=== PATIENT | female | born 1980 | race Caucasian/White ===

== ENCOUNTER → 2018-02-24 08:13 | Outpatient (CLI) | payer BC, SELFPAY ==
--- NOTE | 2018-02-24 08:19 | US_ITS ---
US gallbladder COMPARISON: None HISTORY: Generalized abdominal pain with some bloating and nausea Sagittal, transverse and decubitus imaging of the gallbladder was performed. GALLBLADDER - No stones are evident and there is no biliary sludge. Common duct is normal in diameter. The gallbladder wall is normal thickness. Liver: Unremarkable Pancreas: Normal size with normal echogenicity Right kidney: Unremarkable appearing. No hydronephrosis. Right kidney measures 12.1 x 4.4 x 5.0 cm IMPRESSION: Negative gallbladder ultrasound. No stones evident. Liver pancreas and right kidney all appear grossly normal.
== END ==
PROVIDERS: PCP Internal Medicine; Visit Provider Internal Medicine
DX: R14.0 Abdominal distension (gaseous) (principal); R10.9 Unspecified abdominal pain; R11.0 Nausea
CPT/HCPCS: 76705

== ENCOUNTER → 2018-08-22 09:22 | Outpatient (POV) | payer BC, SELFPAY | PROVIDERS: Visit Provider Dermatology | DX: Z00.00 Encounter for general adult medical examination without abnormal findings (principal) ==

== ENCOUNTER → 2018-10-24 13:14 | Outpatient (CLI) | payer BC, SELFPAY ==
[2018-10-24 13:49] LABS: Basophils # 0.1 K/mm3 (0-0.2); Basophils % 1.2 % (0.1-2.0); Eosinophils # 0.1 K/mm3 (0.0-0.4); Eosinophils % 1.1 % (0.1-12.0); Hematocrit 41.2 % (37.0-47.0); Hemoglobin 13.7 g/dL (12.2-16.2); Lymphocytes % 38.7 % (10-50); Mean Corpuscular HGB Conc 33.2 g/dL (31.8-35.4); Mean Corpuscular Hemoglobin 30.5 pg (27.0-31.2); Mean Corpuscular Volume 91.8 fl (81-99); Mean Platelet Volume 8.1 fl (7.4-10.4); Monocytes # 0.2 K/mm3 (0.1-1.0); Monocytes % 4.6 % (1.7-9.3); Neutrophils # 2.8 K/mm3 (1.8-7.8); Neutrophils % 54.5 % (37.0-80.0); Platelet Count 240 K/mm3 (142-424); Red Blood Count 4.49 M/mm3 (4.20-5.40); Red Cell Distribution Width 12.2 % (11.5-17.5); White Blood Count 5.2 K/mm3 (4.8-10.8)
[2018-10-24 20:05] LABS: Free T4 (Free Thyroxine) 0.97 ng/dl (0.76-1.46)
[2018-10-24 20:13] LABS: Alanine Aminotransferase 19 U/L (12-78); Albumin Level 4.6 gm/dL (3.4-5.0); Albumin/Globulin Ratio 1.5 (1.1-1.8); Alkaline Phosphatase 59 U/L (46-116); Anion Gap 10.9 mEq/L (5-15); Aspartate Amino Transferase 10 U/L (15-37); Bilirubin,Total 0.7 mg/dL (0.2-1.0); Blood Urea Nitrogen 8 mg/dL (7-18); Calcium 9.6 mg/dL (8.5-10.1); Carbon Dioxide 30 mmol/L (21.0-32.0); Chloride 103 mmol/L (98-107); Chol/HDL Ratio 2.8 (1-3.5); Cholesterol 214 mg/dL (140-200); Creatinine,Serum 0.73 mg/dL (0.55-1.02); Estimated Glomerular Filt Rate 88 ml/min (>60); GFR (African American) 107 ML/MIN (>60); Glucose 84 mg/dL (74-106); HDL Cholesterol 76 mg/dL (29-89); LDL Cholesterol 124 mg/dL (0-130); Potassium 3.9 mmoL/L (3.5-5.1); Sodium 140 mmol/L (136-145); Thyroid Stimulating Hormone 1.28 uIU/ml (0.358-3.740); Total Protein,Serum 7.6 gm/dL (6.4-8.2); Triglycerides 68 mg/dL (30-200); VLDL Cholesterol 14 mg/dL (0-40)
== END ==
PROVIDERS: Internal Medicine; Visit Provider Internal Medicine
DX: R53.83 Other fatigue (principal); Z00.00 Encounter for general adult medical examination without abnormal findings
CPT/HCPCS: 36415; 80053; 80061; 84439; 84443; 85025

== ENCOUNTER → 2018-12-13 12:51 | Outpatient (CLI) | payer BC, SELFPAY ==
--- NOTE | 2018-12-13 12:55 | MM_ITS ---
MM Dig mamm BI DX w/CAD, US breast RT complete, US breast LT complete INDICATION: Palpable area in the right breast upper outer aspect ORDERING PHYSICIAN: Madison Ballard MD PATIENT AGE: 38 years COMPARISON: 06/11/2014 TECHNIQUE: Standard images performed along with spot compression views of the palpable abnormality and bilateral breast ultrasound. The study is compared to an older exam of 06/11/2014 FINDINGS: There is very dense bilateral breast tissue with multiple bilateral varying sized benign-appearing nodules many of which are new when compared to the previous exam. No malignant appearing mass or malignant appearing microcalcification is evident. On the right, there is a benign-appearing nodular density which measures at least 2 x 2.5 cm in the region of the palpable abnormality. This was not present on previous exam however, there were multiple other small nodular densities present on that study. In addition, there are numerous other bilateral benign-appearing nodules along with benign-appearing calcifications of the breast. Right breast ultrasound: There is dense fibroglandular tissue with multiple right breast cysts. At 11:00 there is a 3.9 x 1.5 cm septated cyst corresponding to the palpable abnormality.. No malignant appearing masses are evident. Left breast ultrasound: Echodense fibroglandular tissue with multiple cysts. The largest cyst is at 2:00 measuring 2.4 x 1.3 cm with an internal septation. No suspicious nodules evident. Small nodes are present in the axilla. IMPRESSION: Multiple bilateral breast cysts. Palpable abnormality in the upper outer aspect of the right breast corresponds to a 3.9 x 1.5 cm septated cyst. No convincing evidence of malignancy. There is very dense fibroglandular tissue which decreases the sensitivity of mammography. Any suspicious palpable abnormality should be managed on a clinical basis. Fine-needle aspiration could be performed of the palpable nodule for patient comfort if clinically desired. Recommend 6 month mammographic and sonographic follow-up due to the multiple abnormalities and the complex cysts BI-RADS Category: 3 Probably Benign Finding Short Term Follow-up RECOMMENDED FOLLOW-UP: 6M - 6 MONTH FOLLOW-UP (A letter has been sent to the patient regarding results of the study.)
== END ==
PROVIDERS: PCP Internal Medicine; Visit Provider Obstetrics & Gynecology
DX: R92.2 Inconclusive mammogram (principal); N63.10 Unspecified lump in the right breast, unspecified quadrant
CPT/HCPCS: 76641; 77066

== ENCOUNTER → 2019-04-09 10:39 | Outpatient (CLI) | payer BC, SELFPAY ==
--- NOTE | 2019-04-09 10:43 | XR_ITS ---
XR ankle wt bearing LT min 3V Ordering Physician: Taylor Peralta DPM Patient Age: 39 years: Female HISTORY: ITS.REASON: Ankle Injury after stepping pain after stepping off stairs rolled ankle. Pain at arch of left foot into heel. TECHNIQUE: 3 views left ankle weightbearing pain COMPARISON : No previous relevant studies FINDINGS . The ankle is intact with no fracture evident. No separate soft tissue swelling overlying the lateral or medial malleolus. Ankle mortise intact. Mild sclerotic focus at medial dome of talus is most likely a bone island 7.5 mm plantar calcaneal spur.. No associated swelling or fracture or fragmentation hereRadiographically. Also note minimal 5 mm spur at the insertion of Achilles tendon IMPRESSION: . Left Ankle intact no acute fracture or findings. . Calcaneal spurring noted
== END ==
PROVIDERS: PCP Internal Medicine; Visit Provider Podiatrist
DX: S99.912A Unspecified injury of left ankle, initial encounter (principal)
CPT/HCPCS: 73610

== ENCOUNTER → 2019-05-28 16:29 | Outpatient (CLI) | payer BC, SELFPAY | PROVIDERS: PCP Internal Medicine; Visit Provider Internal Medicine Cardiovascular Disease | DX: G47.30 Sleep apnea, unspecified (principal); R06.83 Snoring; R40.0 Somnolence | CPT/HCPCS: G0399 ==

== ENCOUNTER → 2019-06-26 14:32 | Outpatient (CLI) | payer BC, SELFPAY ==
--- NOTE | 2019-06-26 14:32 | MM_ITS ---
PROCEDURE: MM DIG MAMM BI DX W/CAD CLINICAL INDICATION: 6 month follow up Follow-up bilateral nodules 6 COMPARISON: BREASTLT US breast LT complete from 12/13/2018 BREASTRT US breast RT complete from 12/13/2018 DXBI MM Dig mamm BI DX w/CAD from 12/13/2018 US BREAST RT COMPLETE from 06/26/2019 US BREAST LT COMPLETE from 06/26/2019 TECHNIQUE: Standard images performed along with spot compression views and bilateral breast ultrasound FINDINGS: There is very dense breast tissue bilaterally. This limits mammographic evaluation and could obscure underlying nodules. There are multiple bilateral benign-appearing nodular densities once again noted. Some of these are smaller and some of these are larger compared to the previous exam consistent with fluctuating cysts no malignant appearing mass or malignant-appearing microcalcification. There are bilateral benign-appearing calcifications. Right breast ultrasound: At 10 o'clock there is a 2 cm cyst. Adjacent to this cyst is a in slightly hypoechoic nodule at 7 mm not readily identified on the previous study and is may be related to an area of debris or hemorrhage within a cyst or a new solid nodule.. Previously there was a 4 by 2 cm cyst at 11 o'clock. This may be part of that cyst previously noted cyst. At 11 o'clock now there is a 2.3 x 1.2 cm cyst. Suggest 6 month follow-up ultrasound of the right breast to confirm stability of the news solid appearing nodule. Left breast ultrasound: A complicated 3 x 1 cm cyst is present in the 2 o'clock region of the left breast. This previously measured 2.4 x 1.3 cm. Complicated 1.8 cm cyst is present at 4 o'clock previously 1.2 cm. Near the nipple at 9 o'clock there is a 2.9 x 0.6 cm cyst. No suspicious nodules are evident. IMPRESSION: Overall there has been no significant change with probably benign findings. Would recommend a continued six-month follow-up to confirm 1 year stability in this patient with multiple breast nodules. Would also suggest continued ultrasound surveillance due to this increased density in the complicated cysts and the possible new solid nodule versus debris-filled cyst at 11 o'clock in the right breast. BI-RAD Category: 3 Probably Benign Finding Short Term Follow-up FOLLOW-UP: 6M 6Month Follow-up (A letter has been sent to the patient regarding results of the study.) Dictated by: Dereck Granados MD 07/02/2019 09:13 Electronically signed by Dereck Granados MD in [place] 07/02/2019 09:13
== END ==
PROVIDERS: PCP Internal Medicine; Visit Provider Obstetrics & Gynecology
DX: N60.01 Solitary cyst of right breast (principal); N60.02 Solitary cyst of left breast
CPT/HCPCS: 76641; 77066

== ENCOUNTER → 2020-01-17 15:21 | Outpatient (CLI) | payer OTHER, SELFPAY ==
[2020-01-17 15:36] LABS: Basophils % 0.6 % (0.1-2.0); Eosinophils # 0.1 K/mm3 (0.0-0.4); Hematocrit 39.4 % (37.0-47.0); Hemoglobin 12.5 g/dL (12.2-16.2); Lymphocytes # 2.3 K/mm3 (0.7-4.5); Lymphocytes % 34.4 % (10-50); Mean Corpuscular HGB Conc 31.8 g/dL (31.8-35.4); Mean Corpuscular Hemoglobin 30.1 pg (27.0-31.2); Mean Corpuscular Volume 94.4 fl (81-99); Mean Platelet Volume 8.6 fl (7.4-10.4); Monocytes # 0.3 K/mm3 (0.1-1.0); Monocytes % 4.9 % (1.7-9.3); Neutrophils # 3.8 K/mm3 (1.8-7.8); Neutrophils % 58.1 % (37.0-80.0); Platelet Count 226 K/mm3 (142-424); Red Blood Count 4.17 M/mm3 (4.20-5.40); Red Cell Distribution Width 12.5 % (11.5-17.5); White Blood Count 6.6 K/mm3 (4.8-10.8)
[2020-01-17 16:44] LABS: Chloride 104 mmol/L (98-107); Sodium 137 mmol/L (136-145)
[2020-01-17 16:45] LABS: Potassium 4.2 mmoL/L (3.5-5.1)
[2020-01-17 16:47] LABS: Alanine Aminotransferase 14 U/L (12-78); Albumin Level 4.6 g/dl (3.5-5.0); Albumin/Globulin Ratio 1.8 (1.1-1.8); Alkaline Phosphatase 43 U/L (38-126); Anion Gap 9.2 mEq/L (5-15); Aspartate Amino Transferase 20 U/L (14-36); Bilirubin,Total 0.4 mg/dl (0.2-1.3); Blood Urea Nitrogen 12 mg/dl (7-17); Calcium 9.8 mg/dl (8.4-10.2); Carbon Dioxide 28 mmol/L (22.0-30.0); Estimated Glomerular Filt Rate 92 ml/min (>60); GFR (African American) 112 ML/MIN (>60); Globulin 2.5 g/dL (1.3-3.2); Glucose 78 mg/dl (74-100); Total Protein,Serum 7.1 g/dl (6.3-8.2)
[2020-01-19 08:42] LABS: FSH 2.9 mIU/mL (.); LH 2.1 mIU/mL (.)
== END ==
PROVIDERS: Visit Provider Obstetrics & Gynecology
DX: N95.1 Menopausal and female climacteric states (principal); R09.89 Other specified symptoms and signs involving the circulatory and respiratory systems; F32.89 Other specified depressive episodes; R53.83 Other fatigue
CPT/HCPCS: 36415; 80053; 83001; 83002; 84443; 85025

== ENCOUNTER → 2020-01-22 14:24 | Outpatient (CLI) | payer OTHER, SELFPAY ==
--- NOTE | 2020-01-22 | US_ITS ---
PROCEDURE: MM DIG MAMM BI DX W/CAD Digital Breast Tomosynthesis Included CLINICAL INDICATION: abnormal mammogram Follow-up abnormal mammogram, bilateral breast nodules COMPARISON: DXBI MM Dig mamm BI DX w/CAD from 12/13/2018 MM DIG MAMM BI DX W/CAD from 06/26/2019 US BREAST RT COMPLETE from 06/26/2019 US BREAST LT COMPLETE from 06/26/2019 US BREAST RT COMPLETE from 01/22/2020 US BREAST LT COMPLETE from 01/22/2020 TECHNIQUE: Standard CC and MLO images and 3D Tomosynthesis was obtained. R2 CAD reviewed. FINDINGS: There is very dense fibroglandular tissue bilaterally which decreases sensitivity of mammography. There are multiple bilateral benign-appearing nodular lesions. No malignant appearing mass or malignant-appearing microcalcification is evident. The nodules are varying in size. The largest nodule on right measures approximately 2.8 cm previously measuring 2.2 cm. This represents a lobulated cyst by ultrasound. There are some scattered faint calcifications which do not appear significantly changed Right breast ultrasound: There are multiple right breast cysts simple and complicated. No suspicious solid lesions are evident. The largest cyst is in 10 o'clock at 2.5 x 2.6 cm. Previously there was a question of a solid component to a cyst at 10 o'clock which is not demonstrated on today's exam Left breast ultrasound: Multiple simple and complicated cyst. The largest is in the 2 o'clock region at 3.3 x 3 cm. No suspicious solid lesions are evident. IMPRESSION: Numerous bilateral breast cysts. No suspicious lesions apparent with no significant change BI-RAD Category: 2 Benign Finding(s) FOLLOW-UP: 1YR 1 Year Follow-up (A letter has been sent to the patient regarding results of the study.) Dictated by: Dereck Granados MD 01/25/2020 09:08 Electronically signed by Dereck Granados MD in [place] 01/25/2020 09:08
== END ==
PROVIDERS: PCP Internal Medicine; Visit Provider Obstetrics & Gynecology
DX: R92.8 Other abnormal and inconclusive findings on diagnostic imaging of breast (principal)
CPT/HCPCS: 76641; 77062; 77066; G0279

== ENCOUNTER → 2020-02-27 11:38 | Outpatient (CLI) | payer OTHER, SELFPAY ==
[2020-02-27 11:56] LABS: Basophils % 0.8 % (0.1-2.0); Eosinophils # 0.1 K/mm3 (0.0-0.4); Eosinophils % 1.9 % (0.1-12.0); Hematocrit 41.8 % (37.0-47.0); Hemoglobin 13.8 g/dL (12.2-16.2); Lymphocytes # 2.2 K/mm3 (0.7-4.5); Lymphocytes % 40.9 % (10-50); Mean Corpuscular Hemoglobin 32.2 pg (27.0-31.2); Mean Corpuscular Volume 97.5 fl (81-99); Mean Platelet Volume 8.5 fl (7.4-10.4); Monocytes # 0.3 K/mm3 (0.1-1.0); Monocytes % 5.6 % (1.7-9.3); Neutrophils # 2.7 K/mm3 (1.8-7.8); Neutrophils % 50.8 % (37.0-80.0); Platelet Count 230 K/mm3 (142-424); Red Blood Count 4.28 M/mm3 (4.20-5.40); Red Cell Distribution Width 12.7 % (11.5-17.5); White Blood Count 5.3 K/mm3 (4.8-10.8)
[2020-02-27 12:20] LABS: Troponin I < 0.01 ng/ml (0.00-0.034)
--- NOTE | 2020-02-27 13:13 | CA_ITS ---
APPROVED REPORT EXAM: Comprehensive 2D, Doppler, and color-flow Echocardiogram Line Clearance Foreman: Lori Gomez CRT Ht: 5 ft 4 in Wt: 141lbs BSA: 1.69 BP: 114/80 mmHg Indications: Chest Pain, Palpitations, smoker 2D Dimensions LVOT 2.02 cm (M/F) 1.5-2.5 M-Mode Dimensions RVDd 2.03 cm (0.9-2.6) LVDd 4.39 cm (3.5-5.7) LVDs 2.73 cm (3.5-5.7) IVSd 1.08 cm (0.6-1.1) PWd 0.78 cm (0.6-1.1) EF (Teich) 68.10% FS 37.80% EDV (Teich) 87.20 mL ESV (Teich) 27.80 mL LV Diastology E/A Ratio 1.24 Mitral Valve MV A Velocity 73.00 (40-130 cm/s) Left Ventricle Left atrium is normal size, left ventricle is normal size, there is no concentric left ventricular hypertrophy, visually estimated ejection fraction 55 to 60% with no regional wall motion abnormality, diastolic parameters are within normal range. Ventricle Right Ventricle Right atrium and right ventricular normal size and contractility. Aortic Valve Valve is normal, there is no aortic stenosis aortic insufficiency. Mitral Valve Mitral valve is normal, there is no mitral stenosis, there is trace mitral regurgitation. Tricuspid Valve Tricuspid valve is grossly normal, there is trace tricuspid regurgitation. Tricuspid regurgitation jet velocity is inadequate for calculation of the right ventricular systolic pressure. Pulmonic Valve Pulmonic valve is normal. Great Vessels Aortic root is normal size. Pericardium No significant pericardial effusion noted. Conclusion 1. Normal left ventricular size, preserved left ventricular systolic function, visually estimated ejection fraction 55% to 60% with no regional wall motion abnormality, diastolic parameters are within normal range. 2. Trace mitral and tricuspid regurgitation of no hemodynamic significance. 3. No significant pericardial effusion noted. Electronically signed by : Ivan Manjarrez, 02/28/2020 12:14:45
[2020-02-27 16:00] LABS: Coronavirus 19 IgG Antibody Negative (Negative); Coronavirus 19 IgM Antibody Negative (Negative)
[2020-02-27 19:37] LABS: Chloride 104 mmol/L (98-107); Potassium 4.7 mmoL/L (3.5-5.1); Sodium 136 mmol/L (136-145)
[2020-02-27 19:39] LABS: Blood Urea Nitrogen 11 mg/dl (7-17); Estimated Glomerular Filt Rate 79 ml/min (>60); GFR (African American) 96 ML/MIN (>60)
[2020-02-27 19:40] LABS: Alanine Aminotransferase 18 U/L (12-78); Albumin Level 4.7 g/dl (3.5-5.0); Alkaline Phosphatase 56 U/L (38-126); Anion Gap 9.7 mEq/L (5-15); Aspartate Amino Transferase 24 U/L (14-36); Bilirubin,Direct 0.2 mg/dl (0.0-0.4); Bilirubin,Indirect 0.5 mg/dL (0.0-0.9); Bilirubin,Total 0.7 mg/dl (0.2-1.3); Bilirubin,Unconjugated 0.5 mg/dL (0.0-1.1); Calcium 9.2 mg/dl (8.4-10.2); Carbon Dioxide 27 mmol/L (22.0-30.0); Cholesterol 244 mg/dl (140-200); Glucose 97 mg/dl (74-100); Total Protein,Serum 7.4 g/dl (6.3-8.2); Triglycerides 81 mg/dl (30-150); VLDL Cholesterol 16 mg/dL (0-40)
[2020-02-27 19:41] LABS: Chol/HDL Ratio 2.4 (1-3.5); HDL Cholesterol 103 mg/dl (40-60)
[2020-02-27 19:53] LABS: Direct LDL Cholesterol 134.79 mg/dL (100-129)
[2020-02-27 19:58] LABS: Free T4 (Free Thyroxine) 0.98 ng/dl (0.78-2.19)
[2020-02-27 20:11] LABS: Thyroid Stimulating Hormone 1.57 uIU/mL (0.465-4.68)
== END ==
LOC: LAB 11:59 → RT 13:11
PROVIDERS: Internal Medicine; PCP Internal Medicine; Visit Provider Nurse Practitioner Family
DX: R00.0 Tachycardia, unspecified (principal); R07.9 Chest pain, unspecified; R00.2 Palpitations; R06.00 Dyspnea, unspecified
CPT/HCPCS: 36415; 80048; 80061; 80076; 84439; 84443; 84484; 85025; 86328; 93306

== ENCOUNTER → 2020-06-02 15:34 | Outpatient (CLI) | payer OTHER, SELFPAY | PROVIDERS: PCP Internal Medicine Adolescent Medicine; Visit Provider Internal Medicine Adolescent Medicine | DX: Z03.818 Encounter for observation for suspected exposure to other biological agents ruled out (principal) | CPT/HCPCS: U0003 ==

== ENCOUNTER → 2020-10-07 10:16 | Outpatient (CLI) | payer OTHER, SELFPAY ==
[2020-10-07 11:13] LABS: Adenovirus,PCR Not Detected (NotDetected); Bordetella Pertussis Not Detected (NotDetected); Chlamydophila Pneumoniae, PCR Not Detected (NotDetected); Coronavirus 19, PCR Not Detected (NotDetected); Coronavirus 229E Not Detected (NotDetected); Coronavirus NL63 Not Detected (NotDetected); Coronavirus OC43 Not Detected (NotDetected); Coronovirus HKU1,PCR Not Detected (NotDetected); Human Metapneumovirus Not Detected (NotDetected); Influenza A, PCR Not Detected (NotDetected); Influenza AH1, 2009 Not Detected (NotDetected); Influenza AH1, PCR Not Detected (NotDetected); Influenza AH3,PCR Not Detected (NotDetected); Influenza B, PCR Not Detected (NotDetected); Mycoplasma Pneumoniae, PCR Not Detected (NotDetected); Parainfluenza 1, PCR Not Detected (NotDetected); Parainfluenza 2, PCR Not Detected (NotDetected); Parainfluenza 3, PCR Not Detected (NotDetected); Parainfluenza 4, PCR Not Detected (NotDetected); Respiratory Syncytial Virus Not Detected (NotDetected); Rhinovirus/Enterovirus Not Detected (NotDetected)
== END ==
PROVIDERS: PCP Internal Medicine Adolescent Medicine; Visit Provider Physician Assistant
DX: Z20.822 Contact with and (suspected) exposure to COVID-19 (principal); R19.7 Diarrhea, unspecified; R53.83 Other fatigue
CPT/HCPCS: 87581; 87633; 87798

== ENCOUNTER → 2020-10-28 16:07 | Outpatient (CLI) | payer OTHER, SELFPAY | PROVIDERS: PCP Emergency Medicine; Visit Provider Internal Medicine | DX: Z20.822 Contact with and (suspected) exposure to COVID-19 (principal) ==

== ENCOUNTER → 2020-10-30 11:02 | Outpatient (CLI) | payer OTHER, SELFPAY | PROVIDERS: PCP Emergency Medicine; Visit Provider Internal Medicine | DX: Z20.822 Contact with and (suspected) exposure to COVID-19 (principal); U07.1 COVID-19 | CPT/HCPCS: U0003 ==

== ENCOUNTER → 2021-04-29 15:05 | Outpatient (CLI) | payer OTHER, SELFPAY ==
[2021-04-29 16:31] LABS: Free Thyroxine Index 2.4 ug/dL (5.93-13.13); Triiodothryronine (T3) Uptake 30 % (23.5-40.5)
[2021-04-29 16:45] LABS: Thyroid Stimulating Hormone 1.06 uIU/mL (0.465-4.68)
[2021-04-29 17:01] LABS: Anion Gap 14.9 mEq/L (5-15); Blood Urea Nitrogen 8 mg/dl (7-17); Calcium 9.5 mg/dl (8.4-10.2); Carbon Dioxide 29 mmol/L (22.0-30.0); Chloride 102 mmol/L (98-107); Estimated Glomerular Filt Rate 91 ml/min (>60); GFR (African American) 111 ML/MIN (>60); Glucose 85 mg/dl (74-100); Potassium 3.9 mmoL/L (3.5-5.1); Sodium 142 mmol/L (136-145)
[2021-04-29 18:07] LABS: Coronavirus 19 IgG Antibody Negative (Negative); Coronavirus 19 IgM Antibody Negative (Negative)
[2021-04-30 15:15] LABS: Free T4 (Free Thyroxine) 1.08 ng/dl (0.78-2.19)
[2021-05-07 09:15] LABS: Triiodothyronine (T3) Total 124 ng/dL (71-180)
== END ==
PROVIDERS: Internal Medicine; Visit Provider Nurse Practitioner Family
DX: R53.83 Other fatigue (principal); E03.9 Hypothyroidism, unspecified; R94.6 Abnormal results of thyroid function studies; Z20.822 Contact with and (suspected) exposure to COVID-19
CPT/HCPCS: 36415; 80048; 84436; 84439; 84443; 84479; 84480; 86328

== ENCOUNTER → 2022-07-12 08:42 | Outpatient (CLI) | payer OTHER, SELFPAY ==
--- NOTE | 2022-07-12 08:45 | XR_ITS ---
FINAL REPORT CLINICAL HISTORY: lat foot pain FINDINGS: 3 weight-bearing views of the right foot were obtained. There is no acute fracture or dislocation. There is a small plantar spur. The joint spaces are intact. The soft tissues are unremarkable. IMPRESSION: Small plantar spur. Reviewed, Interpreted and Dictated by Jag Lynne MD Transcribed by Umair Flores Authenticated and [facility]
--- NOTE | 2022-07-12 08:45 | XR_ITS ---
FINAL REPORT CLINICAL HISTORY: foot pain FINDINGS: 3 weight-bearing views of the left foot were obtained. There is no acute fracture or dislocation. There is a small plantar spur. The joint spaces are intact. The soft tissues are unremarkable. IMPRESSION: Small plantar spur. Reviewed, Interpreted and Dictated by Jag Lynne MD Transcribed by Umair Flores Authenticated and [facility]
== END ==
PROVIDERS: PCP Internal Medicine Adolescent Medicine; Visit Provider Podiatrist
DX: M79.672 Pain in left foot (principal); M79.671 Pain in right foot
CPT/HCPCS: 73630

== ENCOUNTER → 2022-09-13 07:49 | Outpatient (CLI) | payer OTHER, SELFPAY ==
--- NOTE | 2022-09-13 07:50 | US_ITS ---
PROCEDURE INFORMATION: Exam: US Left Breast, Complete US Right Breast, Complete MG Bilateral Screening 3D Mammography Exam date and time: 09/13/2022 8:50 AM Age: 42 years old Clinical indication: Screening. No family history of breast cancer. TECHNIQUE: Imaging protocol: Complete ultrasound of all four quadrants of the Left breast and the retroareolar regions, including ultrasound of the axilla when performed. Complete ultrasound of all four quadrants of the Right breast and the retroareolar regions, including ultrasound of the axilla when performed. Bilateral Screening tomosynthesis and 2D mammography including computer-aided detection (CAD) when performed. COMPARISON: US BREAST LT COMPLETE 01/22/2020 3:23 PM FINDINGS: MAMMOGRAPHY: Breast composition: Extremely dense Mass: Similar pattern of bilateral partly circumscribed partly visualized masses. No suspicious mass. Architectural distortion: None. Calcifications: No suspicious calcifications. Asymmetric density: None. Skin thickening: None. Axillary adenopathy: None. ULTRASOUND: Bilateral sonography, all 4 quadrants, retroareolar and axilla. Multiple bilateral simple cysts and oval hypoechoic masses having the appearance of complicated cysts, similar appearance to those identified on prior studies. The largest on the right is at 6 o'clock 2 cm from the nipple measuring 2.8 by 2.1 x 0.6 cm and at 10 o'clock 4 cm from the nipple measures 1.0 x 0.8 by 1.0 cm, which is smaller than 01/22/2020 when it measured 1.6 x 1.1 by 1.4 cm. The largest on the left is at 9 o'clock 2 cm from the nipple measuring 3.8 by 3.7 x 0.8 cm. Sonographically unremarkable bilateral axillary lymph nodes. IMPRESSION: Extensive bilateral benign-appearing cystic changes. No mammographic or sonographic evidence of malignancy. Annual screening mammography and sonography are recommended unless otherwise clinically indicated. ASSESSMENT: BI-RADS Category 2: Benign
== END ==
PROVIDERS: PCP Internal Medicine Adolescent Medicine; Visit Provider Obstetrics & Gynecology
DX: Z12.31 Encounter for screening mammogram for malignant neoplasm of breast (principal); R92.8 Other abnormal and inconclusive findings on diagnostic imaging of breast
CPT/HCPCS: 76641; 77063; 77067

== ENCOUNTER → 2023-08-19 08:26 | Outpatient (CLI) | payer OTHER, SELFPAY ==
[2023-08-19 08:50] LABS: Basophils # 0.1 K/mm3 (0-0.2); Basophils % 1.6 % (0.1-2.0); Eosinophils # 0.2 K/mm3 (0.0-0.4); Eosinophils % 2.7 % (0.1-12.0); Hematocrit 39.4 % (37.0-47.0); Hemoglobin 13.5 g/dL (12.2-16.2); Lymphocytes # 2.1 K/mm3 (0.7-4.5); Lymphocytes % 36.9 % (10-50); Mean Corpuscular HGB Conc 34.3 g/dL (31.8-35.4); Mean Corpuscular Hemoglobin 32.1 pg (27.0-31.2); Mean Corpuscular Volume 93.7 fl (81-99); Mean Platelet Volume 8.5 fl (7.4-10.4); Monocytes # 0.3 K/mm3 (0.1-1.0); Monocytes % 4.6 % (1.7-9.3); Neutrophils # 3.2 K/mm3 (1.8-7.8); Neutrophils % 54.3 % (37.0-80.0); Platelet Count 237 K/mm3 (142-424); Red Blood Count 4.21 M/mm3 (4.20-5.40); Red Cell Distribution Width 12.4 % (11.5-17.5); White Blood Count 5.8 K/mm3 (4.8-10.8)
[2023-08-19 09:20] LABS: Alanine Aminotransferase 23 U/L (12-78); Albumin Level 4.9 g/dl (3.5-5.0); Alkaline Phosphatase 68 U/L (38-126); Anion Gap 8.4 mEq/L (5-15); Aspartate Amino Transferase 30 U/L (14-36); Bilirubin,Indirect 0.4 mg/dL (0.0-0.9); Bilirubin,Total 0.4 mg/dl (0.2-1.3); Bilirubin,Unconjugated 0.4 mg/dL (0.0-1.1); Blood Urea Nitrogen 11 mg/dl (7-17); Calcium 9.3 mg/dl (8.4-10.2); Carbon Dioxide 29 mmol/L (22.0-30.0); Chloride 103 mmol/L (98-107); Chol/HDL Ratio 2.3 (1-3.5); Cholesterol 249 mg/dl (140-200); Estimated Glomerular Filt Rate 78 ml/min (>60); GFR (African American) 94 ML/MIN (>60); Glucose 89 mg/dl (74-100); HDL Cholesterol 109 mg/dl (40-60); Potassium 4.4 mmoL/L (3.5-5.1); Sodium 136 mmol/L (136-145); Total Protein,Serum 7.6 g/dl (6.3-8.2); Triglycerides 74 mg/dl (30-150); VLDL Cholesterol 15 mg/dL (0-40)
[2023-08-19 09:31] LABS: Direct LDL Cholesterol 124.39 mg/dL (100-129)
[2023-08-19 09:37] LABS: Free T4 (Free Thyroxine) 0.83 ng/dl (0.78-2.19)
[2023-08-19 09:51] LABS: Thyroid Stimulating Hormone 0.87 uIU/mL (0.465-4.68)
[2023-08-20 10:04] LABS: Estradiol 20.3 pg/mL (.); FSH 98.7 mIU/mL (.)
== END ==
PROVIDERS: Obstetrics & Gynecology; PCP Internal Medicine Adolescent Medicine; Visit Provider Internal Medicine
DX: R06.00 Dyspnea, unspecified (principal); R00.2 Palpitations; N91.2 Amenorrhea, unspecified; I11.9 Hypertensive heart disease without heart failure; R53.83 Other fatigue
CPT/HCPCS: 36415; 80048; 80061; 80076; 82670; 83001; 84439; 84443; 85025

== ENCOUNTER 2023-10-28 13:43 | Outpatient (CLI) | payer OTHER, SELFPAY ==
--- NOTE | 2023-10-28 13:43 | MM_ITS ---
PROCEDURE INFORMATION: Exam: US Right Breast, Complete US Left Breast, Complete MG Bilateral Screening 3D Mammography Exam date and time: 10/28/2023 1:34 PM Age: 43 years old Clinical indication: Screening examination TECHNIQUE: Imaging protocol: Complete ultrasound of all four quadrants of the right breast and the retroareolar regions, including ultrasound of the axilla when performed. Complete ultrasound of all four quadrants of the left breast and the retroareolar regions, including ultrasound of the axilla when performed. Bilateral Screening tomosynthesis and 2D mammography including computer-aided detection (CAD) when performed. COMPARISON: 1. MG MM DIG SCREENING MAMM BI W/CAD 09/13/2022 7:49 AM 2. MG MM DIG MAMM BI DX W/CAD 01/22/2020 2:53 PM FINDINGS: MAMMOGRAPHY: Breast composition: The breasts are extremely dense, which lowers the sensitivity of mammography. Mass: Coarse nodular parenchyma noted bilaterally. Architectural distortion: None. Calcifications: None. Asymmetric density: None. Skin thickening: None. Axillary adenopathy: None. ULTRASOUND: Right solid masses: None. Right cystic masses: Fairly widespread simple and debris-filled cysts are noted measuring up to 2.3 cm in the 11 o'clock axis 2 cm from the nipple.. Right architectural distortion: None. Right acoustical shadowing: None. Right skin thickening: None. Right axillary adenopathy: None. Left solid masses: None. Left cystic masses: Fairly widespread simple and debris-filled cysts are noted measuring up to 1.7 cm in the left 9 o'clock axis 2 cm from the nipple. Left architectural distortion: None. Left acoustical shadowing: None. Left skin thickening: None. Left axillary adenopathy: None. IMPRESSION: No mammographic or sonographic evidence of malignancy. Coarse nodular parenchyma on mammography corresponds to underlying benign cystic change sonographically. Annual screening is recommended unless otherwise clinically indicated. ASSESSMENT: BI-RADS Category 2: Benign
== END 2023-10-28 23:59 ==
LOC: RAD 13:43
PROVIDERS: PCP Internal Medicine Adolescent Medicine; Visit Provider Obstetrics & Gynecology
DX: Z12.31 Encounter for screening mammogram for malignant neoplasm of breast (principal); N60.11 Diffuse cystic mastopathy of right breast; N60.12 Diffuse cystic mastopathy of left breast; R92.8 Other abnormal and inconclusive findings on diagnostic imaging of breast
CPT/HCPCS: 76641; 77063; 77067

== ENCOUNTER 2024-09-07 15:22 | Outpatient (CLI) | payer OTHER, SELFPAY ==
[2024-09-07 16:00] LABS: Basophils # 0.1 K/mm3 (0-0.2); Basophils % 0.9 % (0.1-2.0); Eosinophils # 0.1 K/mm3 (0.0-0.4); Eosinophils % 1.3 % (0.1-12.0); Hematocrit 39.8 % (37.0-47.0); Hemoglobin 13.2 g/dL (12.2-16.2); Lymphocytes # 2.5 K/mm3 (0.7-4.5); Lymphocytes % 36.3 % (10-50); Mean Corpuscular HGB Conc 33.2 g/dL (31.8-35.4); Mean Corpuscular Hemoglobin 30.8 pg (27.0-31.2); Mean Corpuscular Volume 92.8 fl (81-99); Mean Platelet Volume 10.7 fl (7.4-10.4); Monocytes # 0.5 K/mm3 (0.1-1.0); Monocytes % 7.7 % (1.7-9.3); Neutrophils # 3.7 K/mm3 (1.8-7.8); Neutrophils % 53.4 % (37.0-80.0); Platelet Count 271 K/mm3 (142-424); Red Blood Count 4.29 M/mm3 (4.20-5.40); Red Cell Distribution Width 12.1 % (11.5-17.5); White Blood Count 6.9 K/mm3 (4.8-10.8)
[2024-09-07 16:25] LABS: Albumin Level 4.8 g/dl (3.5-5.0); Chloride 102 mmol/L (98-107); Potassium 4.2 mmoL/L (3.5-5.1); Sodium 137 mmol/L (136-145)
[2024-09-07 16:27] LABS: Bilirubin,Unconjugated 0.1 mg/dL (0.0-1.1); Blood Urea Nitrogen 15 mg/dl (7-17); Estimated Glomerular Filt Rate 60 ml/min (>60); GFR (African American) 72 ML/MIN (>60)
[2024-09-07 16:28] LABS: Alanine Aminotransferase 33 U/L (12-78); Alkaline Phosphatase 73 U/L (38-126); Anion Gap 11.2 mEq/L (5-15); Aspartate Amino Transferase 31 U/L (14-36); Bilirubin,Direct 0.3 mg/dl (0.0-0.4); Bilirubin,Indirect 0.1 mg/dL (0.0-0.9); Bilirubin,Total 0.4 mg/dl (0.2-1.3); Calcium 9.9 mg/dl (8.4-10.2); Carbon Dioxide 28 mmol/L (22.0-30.0); Chol/HDL Ratio 2.7 (1-3.5); Cholesterol 235 mg/dl (140-200); Glucose 84 mg/dl (74-100); HDL Cholesterol 88 mg/dl (40-60); Magnesium 2.2 mg/dl (1.6-2.3); Total Protein,Serum 7.1 g/dl (6.3-8.2); Triglycerides 228 mg/dl (30-150); VLDL Cholesterol 46 mg/dL (0-40)
[2024-09-07 16:40] LABS: Direct LDL Cholesterol 113.74 mg/dL (100-129)
[2024-09-07 16:43] LABS: Free T4 (Free Thyroxine) 0.78 ng/dl (0.78-2.19)
[2024-09-07 16:59] LABS: Thyroid Stimulating Hormone 1.35 uIU/mL (0.465-4.68)
[2024-09-08 04:02] LABS: Estradiol 46.3 pg/mL (.); FSH 60.8 mIU/mL (.); Progesterone 0.2 ng/mL (.); Testosterone,Total 37 ng/dL (4-50)
== END 2024-09-07 23:59 | disposition home or self-care (01) ==
LOC: LAB 15:23
PROVIDERS: Obstetrics & Gynecology; Visit Provider Internal Medicine
DX: N95.1 Menopausal and female climacteric states (principal); R06.83 Snoring; R40.0 Somnolence; R53.83 Other fatigue
CPT/HCPCS: 80048; 80061; 80076; 82670; 83001; 83735; 84144; 84403; 84439; 84443; 85025

== ENCOUNTER → 2024-09-24 07:08 | Outpatient (CLI) | payer OTHER, SELFPAY | LOC: SL 07:14 | PROVIDERS: PCP Nurse Practitioner Family; Visit Provider Internal Medicine | DX: N95.1 Menopausal and female climacteric states (principal); R06.83 Snoring; R40.0 Somnolence; R53.83 Other fatigue | CPT/HCPCS: G0399 ==

== ENCOUNTER 2025-03-13 09:51 | Outpatient (CLI) | payer OTHER, SELFPAY ==
--- OUTSIDE RECORDS SUMMARY | 2024-12-08 17:30 | XMS_ITS ---
Author Organization [facility] D JANIE Address [address] [place] [address] Care Team Providers Care Financial Services Consultant Name Role Phone Dave Crandall Primary Care Provider Dave Martinez Unavailable [phone] Migration, Provider Unavailable Unavailable Allergies Allergen (clinical drug ingredient) Drug/Non Drug Allergy documented on EMR Reaction Allergy Type Onset Date Status Penicillin rash Drug Allergy Active REASON FOR VISIT [facility] To [facility] Conversion Encounter Medications Medication SIG (Take, Route, Frequency, Duration) Notes Start Date End Date Status Sertraline HCl 50 MG 1 tab(s) orally once a day; Duration: 90 days Active Medrol 4 MG as directed Oral daily; Duration: 6 days 01/18/2022 Active Omeprazole 40 MG 1 cap(s) orally once a day; Duration: 30 day(s) prn Active EDUARDO D 60 MG 1 TAB BID; Duration: 30 DAYS prn *Please review for potential replacement for e-prescription and drug interaction check* Active Senna-Docusate Sodium 8.6-50 MG 1 tab(s) orally once a day (at bedtime); Duration: 30 day(s) prn 02/10/2021 Active ALLERGY INJECTIONS once a week * Please review for potential replacement for e-prescription and drug interaction check* Active Aldactone 25 MG 1 tab(s) orally once a day Active Encounters Encounter Location Date Provider Diagnosis [facility] [address] [place] [address] 12/08/2024 Provider Migration Plan Of Treatment Medication Medication Name Sig Start Date Stop Date Notes Medrol 4 MG as directed Oral daily; Duration: 6 days 01/18 Progress Notes * Jolene PARRISHOB: 8 (45 yo F)Acc No.[id number]:12/08/2024 Patient: Merna GE Provider: Valery jean baptiste Migration :1980 A ge:44 Y S ex:Female Date:12/08/2024 Address:[address] [place] [address] [facility] [id number] Pcp:Dave Crandall Subjective: * Chief Complaints: * 1 . Multum To Medispan Conversion Encounter. * Medical History: * Medications: T aking ALLERGY INJECTIONS , Notes to Pharmacist: once a week *Please review for potential replacement for e-prescription and drug interaction check*, Taking Aldactone 25 MG Tablet 1 tab(s) orally once a day , Taking Omeprazole 40 MG Capsule Delayed Release 1 cap(s) orally once a day , Notes to Pharmacist: prn, Taking EDUARDO D 60 MG 1 TAB BID , Notes to Pharmacist: prn *Please review for potential replacement for e-prescription and drug interaction check*, Taking Senna-Docusate Sodium 8.6-50 MG Tablet 1 tab(s) orally once a day (at bedtime) , Notes to Pharmacist: prn, Taking Sertraline HCl 50 MG Tablet 1 tab(s) orally once a day * Allergies: P enicillin: rash. Objective: * Vitals: Assessment: Plan: * Treatment: * * Electronic signature of Lela ider Migration on 03/13/2025 at 10:03 AM EDT Sign off status: Pending * Provider: Valery jean baptiste Migration Date: 0 12/08/2024 Generated for Blanca burns/Tiffany/Pura on: 03/13/2025 10:03 AM EDT
--- OUTSIDE RECORDS SUMMARY | 2025-03-13 10:04 | XMS_ITS | Encounter Summary ---
Author Organization [facility] Address [address] [place] [address] Care Team Providers Care Dean Of Girls Name Role Phone Unavailable Primary Care Provider Stephani e Encounter Details Date Type Department Care Team (Late st Contact Info) Description 01/16/2025 Telephone [facility]facial Pain [facility] [id number] [place] [address] Ree Hinton Social History Tobacco Use Types Packs/Day Years Used Date Smoking Tobacco: Never Assessed Comments Unknown Sex and Gender Information Value Date Recorded Sex Assigned at Female 12/14/2024 10:11 AM EDT Legal Sex Female 6:19 PM EDT Gender Identity Female 12/14/2024 10:11 AM EDT Sexual Orientation Straight 12/14/2024 10 :11 AM EDT documented as of this encounter Miscellaneous Notes * Telephone Encounter - Ree Hinton - 01/16/2025 2:00 PM EDT Spoke to patient for financial counseling for sleep appliance. PA approved, $1500 deductible, 10% co-insurance. Pt responsible for $1730 and wishes to move forward documented in this encounter Plan of Treatment Upcoming Encounters Date Type Department Care Team (Late st Contact Info) Description 04/03/2025 4:00 PM EDT Office Visit [facility] O[facility]facial Pain Clinic O[facility]facial [facility] [address] [place] [address] Debby Parekh, DDS [id number] [place] [phone] Ada Adhikari 05/15/2025 4:00 PM EDT Office Visit [facility]facial [facility] Clinic Orofacial Pain Clinic [facility] [address] [place] [phone] Debby Parekh, DDS [id number] [place] [phone] Ada Adhikari documented as of this encounter Visit Diagnoses Not on filedocumented in this encounter Additional Health Concerns Assessment Noted Time A Body Mass Index follow-up plan has been documented for the patient 12/24/2024 10:48 PM EDT documented as of this encounter
--- OUTSIDE RECORDS SUMMARY | 2025-03-13 10:04 | XMS_ITS | Patient Health Record ---
Author Organization [facility] D JANIE Address [address] [facility] [address] [place] [address] Care Team Providers Care Engraver Block Name Role Phone Dave Crandall Primary Care Provider Dave Martinez Unavailable [phone] Migration, Provider Unavailable Unavailable Allergies Allergen (clinical drug ingredient) Drug/Non Drug Allergy documented on EMR Reaction Allergy Type Onset Date Status Penicillin rash Drug Allergy Active Reason For Referral No Information Medications Medication SIG (Take, Route, Frequency, Duration) Notes Start Date End Date Status Sertraline HCl 50 MG 1 tab(s) orally once a day; Duration: 90 days Active ALLERGY INJECTIONS once a week * Please review for potential replacement for e-prescription and drug interaction check* Active Aldactone 25 MG 1 tab(s) orally once a day Active Medrol 4 MG as directed Oral [...] bedtime); Duration: 30 day(s) prn 02/10/2021 Active Social History Tobacco Use: Social History Observation Description Date Details (start date - stop date) Current Smoker NA - NA Smoking: Question Answer Notes Are you a: current smoker How often do you smoke cigarettes? some days, bu t not every day How many cigarettes a day do you smoke? 5 or les s How soon after you wake up d o you smoke your first cigarette? after 60 min Are you interested in quitting? Thinking about q uitting Additional Findings: Tobacco User Light cigarett e smoker ((1-9 cigs/day) Problems Problem Type SNOMED Code ICD Code Onset Dates Problem Status W/U Status Risk Notes Problem GERD (gastroesopha geal reflux disease) (K21.9) Active confirmed Problem Anxiety (13879575) Anxiety (F41.9) Active confirmed Encounters Encounter Location Date Provider Diagnosis [facility] [address] [place] [address] 12/08/2024 Provider Migration Plan Of Treatment No Information Insurance Providers Payer Name Payer Address Payer Phone Subscriber Number Group Number Insured Name Patient Relationship to Insured Coverage Start Date Coverage End Date R [place] [id number] [place] [address] [id number] Merna Cruz Self - patient is the insured Medical (General) History Medical History History ICD Code Depression/Anxiety Normal mammogram 10/29 Surgical History Surgery Date(Month/Year) uterine ablation 2013 Hospitalization History Reason Date(Month/Year) food poisoning 2010 pleursy 1988 child x 2
--- OUTSIDE RECORDS SUMMARY | 2025-03-13 10:04 | XMS_ITS | Clinical Summary ---
Author Organization [facility] Address [address] [place] [address] Care Team Providers Care Catalog Librarian Name Role Phone Unavailable Primary Care Provider Unavailabl e Allergies Active Allergy Reactions Criticality Noted Date Comments Penicillins Rash Low 1978 Medications fexofenadine-pse udoephedrine ER ([facility] Congestion) 60-120 MG 12 hr tablet every 12 (twelve) hours. Active Wellbutrin XL 150 MG 24 hr tablet 09/05/2016 Active Climara Pro 0.045-0.015 MG/DAY 09/05/2022 Active omeprazole (PriLOSEC) [address] capsule 1 (one) time each day at the same time. 09/05/2019 Active Encounters Date Type Department Care Team Description 02/13/2025 Telephone [facility] [address] [place] [address] Tracy Talbert 01/16/2025 Telephone [facility] Room [address] [place] [phone] Ree Hinton 12/20/2024 9:45 AM EDT Office Visit [facility] Room [address] [place] [address] Debby Parekh, Ada Hernandez Obstructive sleep apnea (Primary Dx) 12/20/2024 Travel 12/14/2024 Travel from Last 3 Months Social History Tobacco Use Types Packs/Day Years Used Date Smoking Tobacco: Never Assessed Comments Unknown Sex and Gender Information Value Date Recorded Sex Assigned at Female 12/14/2024 10:11 AM EDT Legal Sex Female 6:19 PM EDT Gender Identity Female 12/14/2024 10:11 AM EDT Sexual Orientation Straight 12/14/2024 10 :11 AM EDT Last Filed Vital Signs Vital Sign Reading Time Taken Comments Blood Pressure 120/82 12/20/2024 9:57 AM EDT Pulse 79 12/20/2024 9:57 AM EDT Temperature 36.4 C (97.5 F) 12/20/2024 9:57 AM EDT Respiratory Rate - - Oxygen Saturation 96% 12/20/2024 9:57 AM EDT Inhaled Oxygen Concentration - - Weight 73.4 kg (161 lb 13.1 oz) 12/20/2024 9:57 AM EDT Height 162.6 cm (5' 4 ) 12/20/2024 9:57 AM EDT Body Mass Index 27.78 12/20/2024 9:57 AM EDT Plan of Treatment Upcoming Encounters Date Type Department Care Team (Late st Contact Info) Description 04/03/2025 4:00 PM EDT Office Visit [facility] [address] [place] [address] Debby Parekh DD [address] [phone] Ada Adhikari 05/15/2025 4:00 PM EDT Office Visit [facility] [address] [place] [address] Debby Parekh DDS [address] [address] [phone] (FaxAda Williamson Health Maintenance Due Date Last Done Comments Dental Oral Exam 1978 Dental Prophylaxis 1978 Dental X-Ray: Bitewings 1978 Dental X-Ray: Full Mouth 1978 [facility]-Depression Screening 1978 [facility]-HIV Screening 1978 [facility]-Hepatitis C Screening 1978 [facility]-Infant/Child/Adol SDOH Screenings 1978 [facility]- SDOH Screenings 1996 [facility]-Adult SDOH Screenings 1996 [facility]-DTaP,Tdap,and Td Vaccine s (1 - Tdap) 1997 [facility]-Hepatitis B Vaccines (1 of 3 - 19+ 3-dose series) 1997 [facility]-Pap Smear 1999 [facility]-Cervical Cancer Screening 2008 [facility]-HPV/Cotest 2008 CT Colonography 2023 Colonoscopy 2023 FIT-DNA 2023 FIT 2023 FOBT 2023 Sigmoidoscopy 2023 [facility]-Colorectal Cancer Screening 2023 [id number] Vaccine (3 season) 2024 06/02/2021, 05/01/2021 [facility]-Influenza Vaccine (#1) 2025 [facility]-Zoster Vaccines (1 of 2) 2028 [facility]-Obesity Intervention Completed 12/20/2024 HPV Vaccines Aged Out No longer eligi ble based on patient's age to complete this topic [facility]-HIB Vaccines Aged Out No longer e ligible based on patient's age to complete this topic [facility]-Hepatitis A Vaccines Aged Out No longer eligible based on patient's age to complete this topic [facility]-IPV Vaccines Aged Out No longer e ligible based on patient's age to complete this topic [facility]-Pneumococcal Vaccine: Pediatrics (0 to 5 Years) and At-Risk Patients (6 to 49 Years) Aged Out No longer eligible b ased on patient's age to complete this topic [facility]-Rotavirus Vaccines Aged Out No lo nger eligible based on patient's age to complete this topic [place] [address] [facility]
--- OUTSIDE RECORDS SUMMARY | 2025-03-13 10:04 | XMS_ITS | Encounter Summary ---
Author Organization [facility] Address [address] [place] [address] Care Team Providers Care Hold Worker Name Role Phone Unavailable Primary Care Provider Unavailabl e Encounter Details Date Type Department Care Team (Late st Contact Info) Description 02/13/2025 Telephone [facility] [address] [place] [address] Tracy Talbert [facility] [place] [address] Social History Tobacco Use Types Packs/Day Years Used Date Smoking Tobacco: Never Assessed Comments Unknown Sex and Gender Information Value Date Recorded Sex Assigned at Female 12/14/2024 10:11 AM EDT Legal Sex Female 6:19 PM EDT Gender Identity Female 12/14/2024 10:11 AM EDT Sexual Orientation Straight 12/14/2024 10 :11 AM EDT documented as of this encounter Miscellaneous Notes * Telephone Encounter - Tracy Talbert - 02/13/2025 12:58 PM EDT Phone call complete documented in this encounter Plan of Treatment Upcoming Encounters Date Type Department Care Team (Late st Contact Info) Description 04/03/2025 4:00 PM EDT Office Visit [facility] [address] [place] [address] Debby Parekh, DDS [id number] [place] [phone] Ada Adhikari 05/15/2025 4:00 PM EDT Office Visit [facility] [address] [place] [address] Debby Parekh, S [id number] [place] [address] Ada Adhikari documented as of this encounter Visit Diagnoses Not on filedocumented in this encounter Additional Health Concerns Assessment Noted Time A Body Mass Index follow-up plan has been documented for the patient 12/24/2024 10:48 PM EDT documented as of this encounter
--- NOTE | 2025-03-13 10:09 | MM_ITS ---
PROCEDURE INFORMATION: Exam: US Right Breast, Complete MG Bilateral Diagnostic Breast Tomosynthesis MG Bilateral Diagnostic Mammography Exam date and time: 03/13/2025 10:18 AM Age: 45 years old Clinical indication: Right breast palpable lump; Right breast swelling; Right breast pain and nipple discharge TECHNIQUE: Imaging protocol: Complete ultrasound of all four quadrants of the right breast and the retroareolar regions, including ultrasound of the axilla when performed. Bilateral Diagnostic tomosynthesis and 2D mammography including computer-aided detection (CAD) when performed. Unilateral or bilateral exam. Diagnostic mammography of the bilateral breasts including computer-aided detection (CAD) when performed. Bilateral exam. COMPARISON: US BREAST RT COMPLETE 10/28/2023 3:13 PM FINDINGS: MAMMOGRAPHY: Breast composition: The breasts are extremely dense, which lowers the sensitivity of mammography. Breast mammogram findings: There are multiple similar bilateral ovoid circumscribed and partially obscured masses which are most consistent with underlying cysts. There is no dominant or suspicious mass. Some of these have rim calcifications which are most suggestive of fat necrosis. There is no architectural distortion or suspicious calcifications. In the right upper outer quadrant in the area of palpable concern, underlying circumscribed masses and areas of fat necrosis are seen. ULTRASOUND: Breast ultrasound findings: In the right breast palpable area of concern, there is a complicated cyst that measures 1.5 x 1.4 x 1.5 cm, at 11 o'clock, 3 cm from the nipple. Overall, this appears similar to prior ultrasound studies, dating back to 09/13/2022. Therefore, it is considered benign. There are multiple bilateral similar simple and complicated cysts, most of which are similar to prior ultrasound studies. There is no dominant or suspicious mass. No suspicious shadowing or distortion. No axillary adenopathy. IMPRESSION: 1. Cystic structures in both breasts are considered benign and consistent with underlying fibrocystic breasts. There is a dominant complicated cyst at the site of palpable concern in the right breast. Continued clinical monitoring is recommended as needed. Further evaluation of a palpable abnormality should be based on clinical grounds regardless of radiographic findings or lack thereof. 2. Annual bilateral mammographic screening is recommended unless otherwise clinically indicated. ASSESSMENT: BI-RADS Category 2: Benign.
== END 2025-03-13 23:59 | disposition home or self-care (01) ==
LOC: RAD 09:52
PROVIDERS: PCP Obstetrics & Gynecology; Visit Provider Obstetrics & Gynecology
DX: N63.11 Unspecified lump in the right breast, upper outer quadrant (principal); N60.02 Solitary cyst of left breast; N60.01 Solitary cyst of right breast; R92.333 Mammographic heterogeneous density, bilateral breasts; N64.52 Nipple discharge; N64.4 Mastodynia
CPT/HCPCS: 76641; 77062; 77066; G0279